=== PATIENT | female | born 1970 | race American Indian/Alaskan Native ===

== ENCOUNTER 2019-12-16 18:09 | Emergency (ER) | payer MEDICAID, OTHER ==
[~2019-12-16] VITALS: Ht 162.6 cm; Wt 56.7 kg
[2019-12-16 18:43] VITALS: BP 118/78
--- NOTE | 2019-12-16 19:39 | NUR ---
TOOK OVER PT CARE. PT BEING DISCHARGED. DISCHARGE PAPERS GIVEN TO PT BY PREVIOUS NURSE.
== END 2019-12-16 19:40 | disposition home or self-care (01) ==
LOC: ER 18:13
DX: S13.4XXA Sprain of ligaments of cervical spine, initial encounter (principal); S09.8XXA Other specified injuries of head, initial encounter; V49.59XA Passenger injured in collision with other motor vehicles in traffic accident, initial encounter; Y93.89 Activity, other specified; Y92.488 Other paved roadways as the place of occurrence of the external cause; Y99.8 Other external cause status